=== PATIENT | female | born 1995 | race Caucasian/White ===

== ENCOUNTER 2017-04-15 20:00 | Emergency (ER) | payer SELFPAY ==
[2017-04-15 21:09] VITALS: BP 141/76
== END 2017-04-15 21:09 | disposition home or self-care (01) ==
LOC: ED 20:00
DX: N39.0 Urinary tract infection, site not specified (principal); N76.0 Acute vaginitis

== ENCOUNTER 2019-11-02 21:29 | Emergency (ER) | payer SELFPAY ==
[~2019-11-02] VITALS: Ht 167.6 cm; Wt 68.0 kg
[2019-11-02 21:34] VITALS: BP 150/96; Ht 167.6 cm; Wt 68.0 kg
== END 2019-11-02 22:03 | disposition home or self-care (01) ==
LOC: ED 21:29
DX: J03.90 Acute tonsillitis, unspecified (principal)